=== PATIENT | female | born 1955 | race Two or more races ===

== ENCOUNTER 2018-04-23 00:07 | Emergency (ER) | payer OTHER ==
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
[2018-04-23 00:20] VITALS: BP 158/89; PULSE 83; TEMP 98.9; BMI 30.2
[2018-04-23] MEDS ORDERED: KETOROLAC TROMETHAMINE 30 MG/1 ML VIAL IM ONE (02:27)
[2018-04-23] MEDS ORDERED: KETOROLAC TROMETHAMINE 30 MG/1 ML VIAL ONE ×2 (02:29→02:30)
--- NOTE | 2018-04-28 12:11 | EKG ---
Test Reason : Blood Pressure : / mmHG Vent. Rate : 076 BPM Atrial Rate : 076 BPM P-R Int : 126 ms QRS Dur : 066 ms QT Int : 376 ms P-R-T Axes : 065 030 054 degrees QTc Int : 423 ms NORMAL SINUS RHYTHM NORMAL ECG NO PREVIOUS ECGS AVAILABLE Confirmed by JACQUI AGUILERA, SACHIN ([id number]) on 04/28/2018 12:10:34 PM Referred By: Confirmed By:SACHIN OSMAN MD
== END 2018-04-23 02:47 | disposition home or self-care (01) ==
LOC: JER 00:07
PROC: 3E0233Z Introduction of Anti-inflammatory into Muscle, Percutaneous Approach (ICD-10-PCS; principal; 2018-04-23)
DX: M62.830 Muscle spasm of back (principal); M54.5 Low back pain; V43.62XA Car passenger injured in collision with other type car in traffic accident, initial encounter; Y93.89 Activity, other specified; Y92.410 Unspecified street and highway as the place of occurrence of the external cause
CPT/HCPCS: 72070-TC-FY; 72100-TC-FY; 93005; 93010; 99283-25